=== PATIENT | male | born 1985 | race Two or more races ===

== ENCOUNTER → 2020-01-16 | Emergency (ER) | payer MEDICAID, OTHER ==
[~2020-01-16] VITALS: Ht 175.3 cm; Wt 95.3 kg
[~2020-01-16] MED LIST: ACETAMINOPHEN 325 MG TAB PO PRN; ASPirin 81 mg TAB PO SCH; ATORVASTATIN 20 MG TAB PO SCH; CARVEDILOL 3.125 MG TAB PO SCH; FAMOTIDINE 20 MG TAB PO SCH; FUROSEMIDE 20 MG TAB PO SCH; FUROSEMIDE 40 MG TAB PO ONE; FUROSEMIDE 40 MG/4 ML VIAL IV ONE; ONDANSETRON HCL 4 MG/2 ML VIAL IV PRN; RIVAROXABAN 20 MG TAB PO SCH; SACUBITRIL-VALSARTAN 24mg/26mg TAB PO SCH; TEMAZEPAM 15 MG CAP PO PRN
[2020-01-16 18:09] VITALS: BP 95/61
[2020-01-16 18:29] LABS: Basophils # (auto) 0.1 10 ^3/uL (0-0.2); Basophils % (auto) 1.3 % (0.0-2.0); Eosinophils # (auto) 0.5 10 ^3/uL (0-0.8); Eosinophils % (auto) 7.3 % (0.0-7.0); Hemoglobin 12.5 g/dL (13.5-17.5); Lymphocytes # (auto) 1.2 10 ^3/uL (0.4-5.4); Lymphocytes % (auto) 17.4 % (10.0-50.0); Mean Corpuscular Hemoglobin 28.9 pg (28.0-32.0); Mean Corpuscular Hgb Conc. 32.7 g/dL (32.0-36.0); Mean Corpuscular Volume 88.2 fL (80.0-100.0); Monocytes # (auto) 0.7 10 ^3/uL (0-1.3); Monocytes % (auto) 10.5 % (0.0-12.0); Neutrophils # (auto) 4.5 10 ^3/uL (1.6-8.6); Neutrophils % (auto) 63.5 % (37.0-80.0); Nucleated Red Blood Cells % 0.1 %; Platelet Count (auto) 308 10^3/uL (140-450); Red Blood Cells 4.31 10^6/uL (4.5-5.90); Red Cell Distribution Width 15.7 % (11.8-14.3)
[2020-01-16 18:45] LABS: Albumin 3.3 g/dL (3.4-5.0); Anion Gap 10 (5-15); Blood Urea Nitrogen 25 mg/dL (7-18); Calcium 8.3 mg/dL (8.5-10.1); Carbon Dioxide 26 mmol/L (21-32); Chloride 100 mmol/L (98-107); Glucose 105 mg/dL (74-106); Potassium 3.5 mmol/L (3.5-5.1); Sodium 136 mmol/L (136-145)
[2020-01-16 18:50] LABS: Alanine Aminotransferase 149 U/L (16-61); Alkaline Phosphatase 101 U/L (45-117); Aspartate Aminotransferase 102 U/L (15-37); BUN/Creatinine Ratio 16.4; Bilirubin, Total 1.7 mg/dL (0.2-1.0); GFR African American 67 mL/min; GFR Non-African American 55 mL/min
[2020-01-16 20:14] LABS: CRP High Sensitivity 0.88 mg/dL (< 0.3)
== END | disposition home or self-care (01) ==
LOC: ER 17:58
DX: I50.33 Acute on chronic diastolic (congestive) heart failure (principal); R79.89 Other specified abnormal findings of blood chemistry; R07.89 Other chest pain; I25.10 Atherosclerotic heart disease of native coronary artery without angina pectoris
CPT/HCPCS: 36415; 71046; 80053; 82728; 83605; 83615; 83880; 84484; 85025; 85379; 86141; 87040

== ENCOUNTER 2021-04-02 12:31 | Emergency (ER) | payer OTHER, MEDICAID ==
[~2021-04-02] VITALS: Ht 180.3 cm; Wt 99.8 kg
[2021-04-02 13:12] VITALS: BP 128/73
== END 2021-04-02 14:04 | disposition home or self-care (01) ==
LOC: ER 12:31
DX: K04.7 Periapical abscess without sinus (principal); I25.10 Atherosclerotic heart disease of native coronary artery without angina pectoris; F17.210 Nicotine dependence, cigarettes, uncomplicated; Z98.890 Other specified postprocedural states

== ENCOUNTER 2024-05-30 09:29 | Emergency (ER) | payer OTHER, MEDICAID ==
[~2024-05-30] VITALS: Ht 177.8 cm; Wt 95.5 kg
[2024-05-30 09:30] VITALS: TEMP 97
--- NOTE | 2024-05-30 09:44 | ED.PDOC ---
Altered Mental Status HPI Comments 38y M who presents to the ED for chief complaint of ALOC. Per EMS, pt lives with family who states pt was not feeling good for the past few days. Pt and family had gone out to eat earlier this AM and after coming back home, pt was lying down in room and family found him later this AM, unresponsive and called EMS to the scene. EMS arrived on scene and pt was in PEA and pt was given 4 EPI with 1 shock delivered with no change. Pt was put on AUTOPULSE and brought to the ED with no change and was not intubated prior to ED arrival. EMS states pt has history of CHF, HTN and liver disease and no other information was provided. Chief Complaint: ALOC Time Seen by MD: 09:42 Primary Care Provider: RAJINDER Westbrook Notes: Medications, Allergies Allergies: Coded Allergies: NO KNOWN ALLERGIES (Unverified , 04/02/21) Information Source: Emergency Med Personnel Mode of Arrival: EMS Brought in by: EMS Past Medical History PAST MEDICAL HISTORY: CAD, CHF, HTN, Liver Surgical History: PTCA Family History Family History: Reviewed,noncontributory to illness, No family hx of Cancer, No family hx of DM, No family hx of Heart rafaela Social History Smoker: Quit Greater Than 1 Year Alcohol: Denies ETOH Use Drugs: Marijuana Lives In: Home Constitutional: denies: chills, diaphoresis, fatigue, fever, malaise, sweats, weakness, others EENTM: denies: blurred vision, double vision, ear bleeding, ear discharge, ear drainage, ear pain, ear ringing, eye pain, eye redness, hearing loss, mouth pain, mouth swelling, nasal discharge, nose bleeding, nose congestion, nose pain, photophobia, tearing, throat pain, throat swelling, voice changes, others Respiratory: denies: cough, hemoptysis, orthopnea, SOB at rest, shortness of breath, SOB with excertion, stridor, wheezing, others Cardiovascular: denies: chest pain, dizzy spells, diaphoresis, Dyspnea on exertion, edema, irregular heart beat, left arm pain, lightheadedness, palpitations, PND, syncope, others Gastrointestinal: denies: abdomen distended, abdominal pain, blood streaked bowels, constipated, diarrhea, dysphagia, difficulty swallowing, hematemesis, melena, nausea, poor appetite, poor fluid intake, rectal bleeding, rectal pain, vomiting, others Genitourinary: denies: burning, dysuria, flank pain, frequency, hematuria, incontinence, penile discharge, penile sore, pain, testicle pain, testicle swelling, urgency, others Neurological: denies: dizziness, fainting, headache, left sided numbness, left sided weakness, numbness, paresthesia, pre-existing deficit, right sided numbness, right sided weakness, seizure, speech problems, tingling, tremors, wea kness, others Musculoskeletal: denies: back pain, gout, joint pain, joint swelling, muscle pain, muscle stiffness, neck pain, others Integumetry: denies: bruises, change in color, change in hair/nails, dryness, l aceration, lesions, lumps, rash, wounds, others Allergic/Immunocompromised: denies: Difficulty Healing, Frequent Infections, Hives, Itching, others Hematologic/Lymphatic: denies: anemia, blood clots, easy bleeding, easy bruising, swollen glands, others Endocrine: denies: excessive hunger, excessive sweating, excessive thirst, excessive urination, flushing, intolerance to cold, intolerance to heat, unexplained weight gain, unexplained weight loss, others Psychiatric: denies: anxiety, bipolar disorder, depression, hopeless, panic disorder, schizophrenia, sleepless, suicidal, others Unable to Obtain due to: Altered Mental Status All Other Systems: Reviewed and Negative Physical Exam General Appearance: Severe Distress HEENT: Other (Pupils fixed and dilated) Neck: NOT DONE Respiratory: Respiratory Distress, Other (Intubated the patient) Cardiovascular: Other (No pulse) Breast Exam: Deferred Gastrointestinal: Soft Genitalia: Deferred Pelvic: Deferred Rectal: Deferred Extremities: NOT DONE Neurologic: Other (Unconscious) Cerebellar Function: NOT DONE Reflexes: NOT DONE Skin: Wounds (Bilateral lower extremity) Peripheral Pulses: 0 Radial (R), 0 Radial (L) Lymphatic: NOT DONE Was a procedure done? 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) Indication: Hypotension Room prepared for procedure: Yes Adjunct Instructor performed hand hygien: Yes Maximal sterile barrier precau: Mask/Eye shield, Sterile gown Skin Preparation: Chlorhexidine gluconate, Providine iodine Skin preparation completely dr: Yes Insertion site: Right, Femoral Central line catheter type: [id number] dialysis Number of lumens: 3 Intubation Indication: Respiratory Insufficiency Prep: Preoxygenation Pretreated with: Analgesia, Sedation Medicated with: Vecuronium Intubation Approach: Orotracheal Intubation size: cm (8) Differential Diagnosis (ALOC) Differential Diagnosis: Encephalopathy, Meningitis, Sepsis, Closed Head Injury, Drug Overdose, ETOH Intoxication, Heart Failure, Renal Failure X-Ray, Labs, Meds, VS Vital Signs Date Time Temp Pulse Resp B/P (MAP) Pulse Ox O2 Delivery O2 Flow Rate FiO2 05/30/24 11:55 0 Ambu-Bag 0 05/30/24 09:53 97.0 0 0 0/0 (0) 0 05/30/24 09:30 97.0 97.0 05/30/24 09:30 Mechanical Ventilator+ 100 100 Patient unconscious. Had to intubate the patient. No pulse. Was given epinephrine. Was given bicarbonate. Was given calcium. Has bilateral lower extremity wounds. He was found unconscious for a long time. Continued ACLS drugs pain Spoke with the team. He was in ventricular fibrillation for a long time. Shocked rhythm. Amiodarone. Continue have no pulse. Chronic condition. Had to pronounce the patient. Spoke with family. Time of 1ST Reevaluation: 10:15 Reevaluation 1ST: Unchanged Patient Education/Counseling: Pt Unresponsive Family Education/Counseling: No Family Present Departure 1 Departure Time of Disposition: 12:52 Impression: Primary Impression: Cardiac arrest Additional Impression: Respiratory failure Qualified Codes: J96.21 - Acute and chronic respiratory failure with hypoxia Disposition: 20 Condition: Other Critical Care Note Critical Care Time?: Yes Stability Stability form required: No Heart Score Heart Score: Heart Score Response (Comments) Value History N/A 0 EKG N/A 0 Age N/A 0 Risk Factors N/A 0 Troponin N/A 0 Total 0 I personally scribed for HEAVEN MIRANDA MD ([email or web address]) on 05/30/24 at 09:43. Electronically submitted by Mathew Riley ([email or web address]). HEAVEN MIRANDA MD May 30, 2024 09:43
[2024-05-30 09:53] VITALS: BP 0/0; PULSE 0; RESP 0; O2SAT 0
--- NOTE | 2024-05-30 11:55 | RESUS ---
CODE BLUE ASSESSSMENT History of Events History of Events: Brought in via ems with cpr in progress. Per EMS, patient was found down in his house by family. States that he reported to family he was not feeling well about 5 minutes prior to being found down. Received 3 epis in route and has been in PEA. Initial Information Date: May 30, 2024 Time: 09:29 Location of Arrest: Arrest Witnessed: No CPR started by whom: EMS Pre-Hospital Care: ACLS Type of arrest: Cardiac Spontaneous Respirations: No Pulse Present: No Monitoring: ECG, Pulse Oximetry, Capnography Crash Cart Opened and Supplies: Yes Airway Ventilation Breathing at Onset: Assisted O2 Sat by Pulse Oximetry: 0 Oxygen Delivery Method: Ambu-Bag Artificial Ventilation: Bag/Mask Intubation Time: :31 Intubation Size: 8.0 cuffed Intubated by: Nain Intubation Attempts: 1 Intubated orally: Yes Intubated Nasaly: No Tube secured at: 23 Cricoid pressure done: No CO2 indicator used: Yes Confirmation: Auscultation, Exhaled CO2 Suctioning (Oral/Tracheal): Yes Circulation Circulation #1: Time: 09:31 Pulse Rate (adult): 0 Blood Pressure Systolic: 0 Blood Pressure Diastolic: 0 Circulation Comment: PEA Circulation #2: Time: 09:33 Pulse Rate (adult): 0 Blood Pressure Systolic: 0 Blood Pressure Diastolic: 0 Circulation Comment: PEA Circulation #3: Time: 09:35 Pulse Rate (adult): 0 Blood Pressure Systolic: 0 Blood Pressure Diastolic: 0 Circulation Comment: PEA Circulation #4: Time: 09:37 Pulse Rate (adult): 0 Blood Pressure Systolic: 0 Blood Pressure Diastolic: 0 Circulation Comment: PEA Circulation #5: Time: 09:39 Pulse Rate (adult): 0 Blood Pressure Systolic: 0 Blood Pressure Diastolic: 0 Circulation Comment: vfib Circulation #6: Time: 09:41 Pulse Rate (adult): 0 Blood Pressure Systolic: 0 Blood Pressure Diastolic: 0 Circulation Comment: PEA Circulation #7: Time: 09:44 Pulse Rate (adult): 0 Blood Pressure Systolic: 0 Blood Pressure Diastolic: 0 Circulation Comment: PEA Circulation #8: Time: 09:46 Pulse Rate (adult): 0 Blood Pressure Systolic: 0 Blood Pressure Diastolic: 0 Circulation Comment: PEA Defibrillation Defbrillation #1: Time Defibrillator Applied: :30 EKG Rhythm: V-Fibrillation Compressions: Manual Compressions Hold/Resume: 938/938 Time Defibrillator Shocked Pt.: 09:39 Defib. Joules: 120 Pulse Present: No EKG Rhythm: V-Fibrillation Defbrillation #2: Time Defibrillator Applied: 09:30 EKG Rhythm: V-Fibrillation Compressions: Manual Compressions Hold/Resume: 940/940 Time Defibrillator Shocked Pt.: 09:41 Defib. Joules: 150 Pulse Present: No EKG Rhythm: V-Fibrillation Defbrillation #3: Time Defibrillator Applied: 09:30 EKG Rhythm: V-Fibrillation Compressions: Manual Compressions Hold/Resume: 942/942 Time Defibrillator Shocked Pt.: 09:43 EKG Rhythm: V-Fibrillation Procedure - IV Procedure - IV #1: IV start time: 09:35 IV Side: Left IV Location: Hand IV Catheter Type: Saline Lock IV Placed: RN IV Gauge: 22 IV Line Care: Saline Flush Procedure - IV #2: IV start time: :41 IV Side: Right IV Location: Femoral IV Catheter Type: Triple Lumen Cath IV Placed: In Hospital IV Placed by Dr. Mccracken IV Gauge: 18 IV Line Care: Saline Flush Procedure - Intraosseous Size of intraosseous: 18 Site of Intraosseous: Tibia jairo-medial Comment: Right upper humorus IO Medications & Response Medications and Responses #1: Medication Time: 09:30 ADULT Medications Given ADULT: Epinephrine 1 mg Route of Administration: IO EKG Rhythm: PEA Blood Pressure Systolic: 0 Blood Pressure Diastolic: 0 Respiratory Rate: 0 O2 Sat by Pulse Oximetry: 0 EKG Rhythm: PEA Medications and Responses #2: Medication Time: 09:31 ADULT Medications Given ADULT: Sodium Bacarbinate 50 meq Route of Administration: IO EKG Rhythm: PEA EKG Rhythm: PEA Medications and Responses #3: Medication Time: 09:32 ADULT Medications Given ADULT: Calcium Chloride 10 mL Route of Administration: IO EKG Rhythm: PEA EKG Rhythm: PEA Medications and Responses #4: Medication Time: 09:32 ADULT Medications Given ADULT: D50 (amp) Route of Administration: IO EKG Rhythm: PEA EKG Rhythm: PEA Medications and Responses #5: Medication Time: 09:33 ADULT Medications Given ADULT: Magnesium Sulfate 2 gm Route of Administration: IO EKG Rhythm: PEA EKG Rhythm: PEA Medications and Responses #6: Medication Time: 09:33 ADULT Medications Given ADULT: Epinephrine 1 mg Route of Administration: IO EKG Rhythm: PEA EKG Rhythm: PEA Medications and Responses #7: Medication Time: 09:36 ADULT Medications Given ADULT: Sodium Bacarbinate 50 meq Route of Administration: IO EKG Rhythm: PEA EKG Rhythm: PEA Medications and Responses #8: Medication Time: 09:36 ADULT Medications Given ADULT: Epinephrine 1 mg Route of Administration: IO EKG Rhythm: PEA EKG Rhythm: PEA Medications and Responses #9: Medication Time: 09:39 ADULT Medications Given ADULT: Epinephrine 1 mg Route of Administration: IO EKG Rhythm: PEA EKG Rhythm: V-Fibrillation Medications and Responses #10: Medication Time: 09:41 ADULT Medications Given ADULT: Sodium Bacarbinate 50 meq Route of Administration: IO EKG Rhythm: PEA Medications and Responses #11: Medication Time: 09:42 ADULT Medications Given ADULT: Epinephrine 1 mg Route of Administration: IO EKG Rhythm: PEA EKG Rhythm: V-Fibrillation Medications and Responses #12: Medication Time: 09:45 ADULT Medications Given ADULT: Amiodarone 300 mg Route of Administration: IO EKG Rhythm: PEA Pacing Pacer Pads Applied and Pacing: No Procedure - Central Venous Cat Central venous catheter time: 09:40 Central venous catheter size: 18 Central venous catheter site: Rt Femoral Nurses Notes Sheron Coma Scale Eye Opening: None (1) Sheron Coma Scale Verbal: None (1) [place] Coma Scale Motor: None (1) Pupil Reaction: Non Reactive EKG Rhythm: PEA Time Code Ended Time Code Ended: 09:46 Outcome of code: Unsuccessful Patient pronounced by: José Luis Time patient pronounced: 09:46 Family notified: Yes Attending called: No Code Team Present: Dr. Ordonez, Karena Cortez RN, Rodríguez RN, Xin RN, Rosenda RNS, Edith RNS, Cydney EMT, Gabriele EMT, [place]iv[place] RT, Aida RT, Geovanna RT KARENA DANIELS May 30, 2024 11:55
== END 2024-05-30 09:46 ==
LOC: EDBD 09:29 → ER 09:29
DX: I46.9 Cardiac arrest, cause unspecified (principal); J96.90 Respiratory failure, unspecified, unspecified whether with hypoxia or hypercapnia; I11.0 Hypertensive heart disease with heart failure; I50.9 Heart failure, unspecified; I25.10 Atherosclerotic heart disease of native coronary artery without angina pectoris; F15.90 Other stimulant use, unspecified, uncomplicated; Z98.890 Other specified postprocedural states; Z87.891 Personal history of nicotine dependence
CPT/HCPCS: 31500; 36556; 92950